=== PATIENT | female | born 1985 | race Caucasian/White ===

== ENCOUNTER → 2017-11-01 | Outpatient (CLI) | payer BC ==
[2014-11-11 18:30] VITALS: BP 138/96
[~2017-11-01] MED LIST: ATIVAN0.5 MG PO; BUSPAR10 MG PO; CELEXA10 MG PO; PRILOSEC 20MG20 MG PO; SPRINTEC 35 MCG1 TAB PO; UNABLE
== END ==
LOC: LAB 17:38
DX: R68.89 Other general symptoms and signs (principal)

== ENCOUNTER 2019-08-16 10:53 | Emergency (ER) | payer BC ==
[~2019-08-16] VITALS: Ht 175.3 cm; Wt 105.9 kg
[2019-08-16 11:35] LABS: EOS # 0.2 (0.04-0.40); EOS % 5.2 % (1.0-5.0); HEMATOCRIT 41.8 % (37.0-47.0); HEMOGLOBIN 13.6 g/dL (12.5-16.0); LYMPH# 1.3 (1.50-4.00); MEAN CELL VOLUME 81 fl (78-100); MEAN CORPUSCULAR HEMOGLOBIN 27 pg (27-31); MEAN CORPUSCULAR HGB CONC 33 g/dL (33-37); MEAN PLATELET VOLUME 10.4 fl (7.4-10.4); MONO # 0.5 (0.20-0.80); NEU # 2.6 (1.40-6.50); PLATELET COUNT 195 K/mm3 (130-400); RED BLOOD COUNT 5.14 M/mm3 (4.10-5.30); RED CELL DISTRIBUTION WIDTH 14.6 % (11.5-14.5); WHITE BLOOD COUNT 4.6 K/mm3 (4.8-10.8)
[2019-08-16 11:36] LABS: POTASSIUM 3.7 mmol/L (3.5-5.1)
[2019-08-16 11:37] LABS: CALCIUM 9.1 mg/dL (8.3-10.5)
[2019-08-16 11:38] LABS: TOTAL PROTEIN 6.7 g/dL (6.4-8.3)
[2019-08-16 11:40] LABS: TOTAL BILIRUBIN 0.4 mg/dL (0.2-1.2)
[2019-08-16] MEDS ORDERED: TESSALON PERLE100 M1 PO (12:10)
[2019-08-16] MEDS ORDERED: HYDROCODONE-CHLO5 M1 PO (12:10)
[2019-08-16 12:21] VITALS: BP 146/78
== END 2019-08-16 12:20 | disposition home or self-care (01) ==
LOC: ED 10:53
PROVIDERS: Nurse Practitioner Primary Care
DX: J20.9 Acute bronchitis, unspecified (principal); F41.9 Anxiety disorder, unspecified; K50.90 Crohn's disease, unspecified, without complications; E28.2 Polycystic ovarian syndrome; F17.210 Nicotine dependence, cigarettes, uncomplicated; Z98.890 Other specified postprocedural states

== ENCOUNTER → 2020-05-04 | Outpatient (CLI) | payer BC ==
[~2020-05-04] MED LIST changes: +HYDROCODONE-CHLO5 M1 PO; +TESSALON PERLE100 M1 PO
== END ==
LOC: RAD 13:39
DX: M79.645 Pain in left finger(s) (principal)